=== PATIENT | female | born 1950 | race Hispanic/Latino ===

== ENCOUNTER → 2019-04-11 | Outpatient (CLI) | payer MEDICARE | END | disposition home or self-care (01) | LOC: SHCH 09:15 | PROVIDERS: ATTEND Internal Medicine Cardiovascular Disease | DX: I87.2 Venous insufficiency (chronic) (peripheral) (principal) | CPT/HCPCS: 93970 ==

== ENCOUNTER → 2019-04-22 | Outpatient (CLI) | payer MEDICARE | END | disposition home or self-care (01) | LOC: RAH 14:05 | PROVIDERS: ATTEND Internal Medicine | DX: M54.2 Cervicalgia (principal) | CPT/HCPCS: 72040 ==